=== PATIENT | female | born 1985 | race Caucasian/White ===

== ENCOUNTER 2016-09-20 18:10 | Emergency (ER) | payer OTHER ==
[~2016-09-20 18:10] MED LIST: ALBUTEROL 0.5ML INH; ALBUTEROL17 GM INH; AMOXICILLIN500 M1 PO; ASMANEX INH; AUGMENTIN PO; BENZONATATE PO; CELEXA20 MG PO; CIPRO PO; DARVOCET-N 1001 TA1 PO; DICLOFENAC PO; DILANTIN PO; DOXYCYCLINE PO; FLAGYL PO; FLEXERIL10 M1 PO; FLEXERIL10 MG PO; IBUPROFEN800 MG PO; KEFLEX500 MG PO; KEPPRA100 MG/ML; KEPPRA250 MG; KEPPRA500 M2 PO; LORTAB 5/500 TA1 TA2 PO; MOBIC PO; MOTRIN600 M1 PO; MOTRIN600 MG PO; NAPROSYN500 MG PO; OMEPRAZOLE20 M2 PO; ORUDIS75 M1 DOB; PEN-VEE K PO; PERCOCET5/325 PO; PHENERGAN25 M1 DOB; PHENERGAN25 M1 PO; PHENERGAN25 MG PO; PRILOSEC20 M1 PO; PROMETHAZINE W118 M2 PO; TYLENOL #3 PO; ULTRAM PO; VISTARIL50 MG PO; VOLTAREN50 MG PO; VOLTAREN75 MG PO; ZANTAC150 MG PO; ZOFRAN ODT4 MG PO; ZYRTEC PO
== END 2016-09-20 18:33 | disposition home or self-care (01) ==
LOC: SED 18:10
DX: J02.9 Acute pharyngitis, unspecified (principal); G40.909 Epilepsy, unspecified, not intractable, without status epilepticus; F41.9 Anxiety disorder, unspecified; F17.210 Nicotine dependence, cigarettes, uncomplicated
CPT/HCPCS: 87651; 99282; 99283

== ENCOUNTER 2016-10-03 20:53 | Emergency (ER) | payer OTHER ==
--- NOTE | ~2016-10-03 | CR181 ---
[facility] A Service [facility] RADIOLOGY TEXT RESULTS PATIENT: ROSARIO SOLIMAN LOCATION: SED : 85 UNIT #: [id number] AGE: [address]: Kenn Land SEX: F ORDER DR: [id number] [place] [id number] MR#: [id number] Acc #: [id number] NAME: ROSARIO SOLIMAN. : 1985 SEX: F STUDY DATE/TIME: 10/03/2016 20:46 UNIT: SED ROOM: STUDY DESCRIPTION: CR Lumbar Spine 2 or 3 Views Attending Physician: Kenn Land P.A.-C. Ordering Physician: Kenn Land P.A.-C. Primary Care Physician: Estelle Zamora A.P.R.N. MEDICAL IMAGING REPORT This report is preliminary unless electronic signature is present. EXAM Lumbar spine three views HISTORY Pain radiating down left hip and left leg beginning two weeks ago. No injury. FINDINGS AP and lateral projections of the lumbar segment show good mineralization of both anterior and posterior elements. They are all anatomically normal without indication of fracture, dislocation, or malignant change of a sclerotic or lytic type. There is no congenital defect noted. The sacroiliac joints are normal. IMPRESSION Normal lumbar spine. No change from lumbar spine series 03/24/16. Dictated by... Fam Kasper M.D. THIS IS AN ELECTRONICALLY VERIFIED REPORT Fam Kasper M.D. at 10/04/2016 3:33 PM IKERS/anderson TD: 10/04/2016 08:02 JOB #: [id number] MEDICAL IMAGING REPORT [facility] A Service [facility] RADIOLOGY TEXT RESULTS PATIENT: ROSARIO SOLIMAN LOCATION: SED : 85 UNIT #: [id number] AGE: [address]: Kenn Land PAC SEX: F ORDER DR: Page 1 of 1
== END 2016-10-03 21:53 | disposition home or self-care (01) ==
LOC: SED 20:53
DX: M54.16 Radiculopathy, lumbar region (principal); G40.909 Epilepsy, unspecified, not intractable, without status epilepticus; F17.210 Nicotine dependence, cigarettes, uncomplicated; Z98.51 Tubal ligation status; Z98.890 Other specified postprocedural states; Z88.8 Allergy status to other drugs, medicaments and biological substances
CPT/HCPCS: 72100; 99283

== ENCOUNTER 2016-11-29 14:31 | Emergency (ER) | payer OTHER ==
[2016-11-29] MEDS ORDERED: AMOXICILLIN (14:38)
== END 2016-11-29 16:00 | disposition home or self-care (01) ==
LOC: SED 14:31
DX: K02.9 Dental caries, unspecified (principal); K03.81 Cracked tooth; F17.210 Nicotine dependence, cigarettes, uncomplicated; Z88.8 Allergy status to other drugs, medicaments and biological substances
CPT/HCPCS: 99282

== ENCOUNTER 2016-12-27 22:52 | Emergency (ER) | payer OTHER ==
[~2016-12-27 22:52] MED LIST changes: +AMOXICILLIN
[2016-12-27] MEDS ORDERED: BENADRYL25 M1 (23:02)
[2016-12-27] MEDS ORDERED: IBUPROFEN800 MG (23:02)
[2016-12-28] MEDS ORDERED: KEPPRA250 MG PO (09:33)
== END 2016-12-27 23:00 | disposition left against medical advice (07) ==
LOC: SED 22:52
DX: Z53.21 Procedure and treatment not carried out due to patient leaving prior to being seen by health care provider (principal)

== ENCOUNTER 2016-12-28 09:25 | Emergency (ER) | payer OTHER ==
[~2016-12-28 09:25] MED LIST changes: +BENADRYL25 M1; +IBUPROFEN800 MG
[2016-12-28] MEDS ORDERED: KEPPRA250 MG PO (09:33)
== END 2016-12-28 10:58 | disposition home or self-care (01) ==
LOC: SED 09:25
DX: K04.7 Periapical abscess without sinus (principal); K02.9 Dental caries, unspecified; F17.210 Nicotine dependence, cigarettes, uncomplicated
CPT/HCPCS: 96374; 96375; 99283; J1885